=== PATIENT | male | born 1965 | race Caucasian/White ===

== ENCOUNTER → 2018-01-21 | Outpatient (CLI) | payer OTHER ==
[2018-01-21 18:04] LABS: ALT/SGPT 37 U/L (12-78); BLOOD UREA NITROGEN 14 mg/dl (7-18); CALCIUM 9.6 mg/dl (8.5-10.1); CARBON DIOXIDE 26 mmol/L (21-32); CREATININE 0.67 mg/dl (0.60-1.40); GLUCOSE 255 mg/dl (70-99); POTASSIUM 3.6 mmol/L (3.5-5.1); SODIUM 134 mmol/L (136-145)
[2018-01-21 18:15] LABS: CHOLESTEROL 174 mg/dl (0-200); LDL CHOLESTEROL CALCULATED 103 mg/dl
[2018-01-22 06:28] LABS: HEMOGLOBIN A1C 9.6 % (4.5-5.6)
== END | disposition home or self-care (01) ==
LOC: C.LABMFLN 15:23
PROVIDERS: ATTEND Family Medicine
DX: E11.9 Type 2 diabetes mellitus without complications (principal); M10.9 Gout, unspecified; K21.9 Gastro-esophageal reflux disease without esophagitis; E78.00 Pure hypercholesterolemia, unspecified